=== PATIENT | female | born 1990 | race African-American/Black ===

== ENCOUNTER 2018-03-01 05:00 | Inpatient (IN) | payer OTHER ==
[2018-03-01] MEDS ORDERED: Morphine 4 MG/ML VIAL ONE (05:07)
[2018-03-01] MEDS ORDERED: Ondansetron ODT 8 MG TAB ONE (05:08)
[2018-03-01 05:28] LABS: #Lymphocytes 1.2 thou/uL (1.20-3.40); #Monocytes 0.6 thou/uL (0.11-0.59); #Neutrophils 13.1 thou/uL (1.40-6.50); %Basophils 0.2 % (0.0-1.0); %Eosinophils 0.3 % (0.0-10.0); %Lymphocytes 7.7 % (21.0-51.0); %Monocytes 4.2 % (0.0-10.0); %Neutrophils 87.5 % (42.0-75.0); Hemoglobin 11.9 g/dL (12.0-16.0); Mean Corpuscular HGB CONC 34.3 g/dL (32.0-36.0); Mean Corpuscular Hemoglobin 30.1 pg (27.0-31.0); Mean Corpuscular Volume 87.7 fl (81.0-99.0); Mean Platelet Volume 7.7 fL (7.4-10.4); Platelet Count 262 thou/uL (130-400); RBC Distribution Width 11.1 % (11.5-14.5); Red Blood Cell (RBC) Count 3.94 mill/uL (4.20-5.40); White Blood Cell (WBC) Count 14.9 thou/uL (4.8-10.8)
[2018-03-01 05:30] LABS: INR-International Normal Ratio 1.1; PTT 25.1 SEC (22.9-36.1); Prothrombin Time 14.4 SEC (12.0-14.7)
[2018-03-01] MEDS ORDERED: Fentanyl 100 MCG/2 ML VIAL ONE ×2 (05:33→07:03)
[2018-03-01 05:38] LABS: ALT (SGPT) 13 U/L (8-55); AST (SGOT) 23 U/L (5-34); Albumin 3.7 g/dL (3.5-5.0); Alkaline Phosphatase 52 U/L (40-150); Anion Gap 10 mmol/L (10-20); BUN (Urea Nitrogen) 14 mg/dL (7.0-18.7); Bilirubin, Total 0.2 mg/dL (0.2-1.2); Calc. Creatinine Clearance 0 mL/min (70-130); Calcium 8.5 mg/dL (7.8-10.44); Carbon Dioxide 21 mmol/L (22-29); Chloride 107 mmol/L (98-107); Estimated GFR-MDRD Greater than 90; Globulin 2.8 g/dL (2.4-3.5); Glucose 123 mg/dL (70-105); Lipase 13 U/L (8-78); Potassium 3.8 mmol/L (3.5-5.1); Protein, Total 6.5 g/dL (6.0-8.3); Sodium 134 mmol/L (136-145)
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
[2018-03-01] MEDS ORDERED: Dextrose 5% in Water 1,000 ML IV PRN (07:42)
[2018-03-01] MEDS ORDERED: Dextrose 50% Abboject 50 ML SYRINGE SLOW IVP PRN (07:42)
[2018-03-01] MEDS ORDERED: Fentanyl 100 MCG/2 ML VIAL SLOW IVP PRN (07:42)
[2018-03-01] MEDS ORDERED: Ondansetron HCl/PF 4 MG/2 ML Vial IVP PRN (07:42)
[2018-03-01] MEDS ORDERED: Sodium Chloride 0.9% 1,000 ML IV SCH (07:42)
[2018-03-01 07:58] VITALS: BMI 32.9
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
[2018-03-01] MEDS ORDERED: traMADol HCl 50 MG TAB PO PRN (08:17)
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
[2018-03-01] MEDS: traMADol HCl 50 MG TAB PO PRN ×3 (08:51→21:14)
[2018-03-01] MEDS: Acetaminophen 500 MG TAB PO SCH ×4 (08:51→21:13)
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
[2018-03-01] MEDS ORDERED: ISOVUE-370 76%-LOCM 1 ML ONE (13:58)
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
--- NOTE | 2018-03-01 17:51 | ULT ---
OB ULTRASOUND 03/01/18 HISTORY: Positive . Evaluate gestational age. FINDINGS: There is a fluid collection within the endometrial canal which does contain a pole. [place]-rump length measures 5.25 cm consistent with gestational age by ultrasound of 11 weeks and 6 days. Gestati onal age by last menstrual period is 11 weeks and 3 days. Doppler evaluation does demonstrate heart tones with a heart rate of 158 beats per minute . There is a normal amount of amniotic fluid. Placenta is located anteriorly. The ovaries are not visualized on this examination. No adnexal mass is seen. There is a trace amount of free fluid in the cul-de-sac. IMPRESSION: 1. Single intrauterine gestation with heart tones documented. Gestational age by measureme nt of the crown-rump length is 11 weeks and 6 days. 2. Nonvisualization of bilateral ovaries. 3. Trace amount of free fluid in the cul-de-sac, probably physiologic in origin. POS: [facility]
[2018-03-01] MEDS: Cyclobenzaprine 10 MG TAB PO PRN (21:13)
[2018-03-01] MEDS: Gabapentin 100 MG CAP PO SCH (21:13)
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
[2018-03-02] MEDS: traMADol HCl 50 MG TAB PO PRN ×2 (04:06→14:43)
[2018-03-02] MEDS: Cyclobenzaprine 10 MG TAB PO PRN ×2 (04:06→17:02)
[2018-03-02] MEDS: Acetaminophen 500 MG TAB PO SCH ×4 (04:06→20:32)
[2018-03-02 06:00] LABS: Anion Gap 12 mmol/L (10-20); BUN (Urea Nitrogen) 7 mg/dL (7.0-18.7); Calc. Creatinine Clearance 229 mL/min (70-130); Calcium 8.3 mg/dL (7.8-10.44); Carbon Dioxide 19 mmol/L (22-29); Chloride 106 mmol/L (98-107); Estimated GFR-MDRD Greater than 90; Glucose 89 mg/dL (70-105); Potassium 3.9 mmol/L (3.5-5.1); Sodium 133 mmol/L (136-145)
[2018-03-02 06:07] LABS: #Eosinphils 0.1 thou/uL (0.0-0.7); #Lymphocytes 1.1 thou/uL (1.20-3.40); #Monocytes 0.5 thou/uL (0.11-0.59); #Neutrophils 6.5 thou/uL (1.40-6.50); %Basophils 0.4 % (0.0-1.0); %Eosinophils 0.8 % (0.0-10.0); %Lymphocytes 13.1 % (21.0-51.0); %Monocytes 6.6 % (0.0-10.0); %Neutrophils 79.2 % (42.0-75.0); Hemoglobin 11.4 g/dL (12.0-16.0); Mean Corpuscular HGB CONC 32.7 g/dL (32.0-36.0); Mean Corpuscular Volume 91.8 fl (81.0-99.0); Platelet Count 182 thou/uL (130-400); RBC Distribution Width 11.2 % (11.5-14.5); Red Blood Cell (RBC) Count 3.81 mill/uL (4.20-5.40); White Blood Cell (WBC) Count 8.2 thou/uL (4.8-10.8)
--- NOTE | 2018-03-02 08:07 | RAD ---
SINGLE VIEW CHEST: Date: 03/02/18 COMPARISON: 03/01/18. HISTORY: Rib fracture and hemothorax. FINDINGS: Single view of the chest shows an enlarged cardiomediastinal silhouette. There is a veil-like opacity in the left thorax which likely represents a hemothorax. Adjacent atelectasis may also be present. T he rib fractures seen on CT cannot be definitely appreciated. No right-sided infiltrates are seen. IMPRESSION: Small left pleural effusion versus hemothorax. POS: [facility]
[2018-03-02] MEDS ORDERED: CEFAZOLIN/Water 2 GM/20 ML SYRINGE SLOW IVP SCH (09:00)
[2018-03-02] MEDS ORDERED: Lidocaine 1% (PF) 30 ML VIAL SC SCH (09:00)
[2018-03-02] MEDS: Gabapentin 100 MG CAP PO SCH ×2 (09:35→20:32)
[2018-03-02] MEDS: Prenatal Vitamin 1 TAB PO SCH (09:35)
[2018-03-02] MEDS ORDERED: Morphine 4 MG/ML VIAL SLOW IVP SCH ×2 (11:30→12:30)
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
[2018-03-02] MEDS: HYDROcodone/Acetaminophen 10/325 mg Tablet PO PRN (20:32)
[2018-03-03] MEDS: Acetaminophen 500 MG TAB PO SCH ×2 (02:42→09:04)
[2018-03-03] MEDS: Cyclobenzaprine 10 MG TAB PO PRN (02:43)
[2018-03-03] MEDS: HYDROcodone/Acetaminophen 10/325 mg Tablet PO PRN (06:00)
--- NOTE | 2018-03-03 07:59 | PDOC.EVN ---
Event Note - Event Note Event Note: OBGYN chart check: Patient s/p thoracotomy tube placement yesterday by Dr Ribeiro. Vitals reviewed...normotensive, afebrile. No immediate ObGyn needs at this time.
[2018-03-03] MEDS: Gabapentin 100 MG CAP PO SCH ×3 (09:04→19:37)
[2018-03-03] MEDS: Prenatal Vitamin 1 TAB PO SCH (09:04)
--- NOTE | 2018-03-03 09:05 | RAD ---
CHEST 1 VIEW: Date: 03/03/18 COMPARISON: 03/02/18. HISTORY: Chest tube placement. Pleural effusion. FINDINGS: Interval placement of left-sided chest tube with distal tip projecting over the left lung apex. No de finite pneumothorax. Improved aeration left lung. The previously noted left-sided effusion is less ev ident. There do appear to be parenchymal changes in the left lung base. Overall, lung volumes are dim inished due to poor inspiratory effort. IMPRESSION: Left-sided chest tube as above. POS: [facility]
[2018-03-03] MEDS ORDERED: HYDROcodone/Acetaminophen 10/325 mg Tablet PO PRN ×2 (11:18→12:39)
[2018-03-03] MEDS ORDERED: traMADol HCl 50 MG TAB PO SCH ×2 (12:00→12:45)
[2018-03-03] MEDS ORDERED: Sodium Chloride 0.9% 1,000 ML IV SCH (12:45)
[2018-03-03] MEDS ORDERED: HYDROcodone/Acetaminophen 10/325 mg Tablet PO SCH (13:00)
[2018-03-03] MEDS: Acetaminophen 325 MG TAB PO SCH ×4 (13:05→23:40)
[2018-03-03] MEDS: Ibuprofen 800 MG TAB PO SCH ×2 (14:05→21:52)
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
[2018-03-03] MEDS: traMADol HCl 50 MG TAB PO SCH ×2 (17:53→23:40)
[2018-03-03] MEDS: Docusate 100 MG CAP PO SCH (19:37)
[2018-03-04 05:51] LABS: #Eosinphils 0.1 thou/uL (0.0-0.7); #Lymphocytes 1.3 thou/uL (1.20-3.40); #Monocytes 0.4 thou/uL (0.11-0.59); #Neutrophils 5.5 thou/uL (1.40-6.50); %Basophils 0.2 % (0.0-1.0); %Eosinophils 1.1 % (0.0-10.0); %Monocytes 5.8 % (0.0-10.0); %Neutrophils 74.9 % (42.0-75.0); Hemoglobin 11.1 g/dL (12.0-16.0); Mean Corpuscular HGB CONC 33.6 g/dL (32.0-36.0); Mean Corpuscular Hemoglobin 30.3 pg (27.0-31.0); Mean Corpuscular Volume 90.3 fl (81.0-99.0); Mean Platelet Volume 7.7 fL (7.4-10.4); Platelet Count 213 thou/uL (130-400); RBC Distribution Width 11.3 % (11.5-14.5); Red Blood Cell (RBC) Count 3.66 mill/uL (4.20-5.40); White Blood Cell (WBC) Count 7.4 thou/uL (4.8-10.8)
[2018-03-04] MEDS: Acetaminophen 325 MG TAB PO SCH ×3 (06:02→17:46)
[2018-03-04] MEDS: traMADol HCl 50 MG TAB PO SCH ×3 (06:03→17:46)
[2018-03-04] MEDS: Ibuprofen 800 MG TAB PO SCH ×3 (06:03→22:02)
[2018-03-04 06:24] LABS: Anion Gap 11 mmol/L (10-20); BUN (Urea Nitrogen) 8 mg/dL (7.0-18.7); Calc. Creatinine Clearance 238 mL/min (70-130); Calcium 8.6 mg/dL (7.8-10.44); Carbon Dioxide 23 mmol/L (22-29); Chloride 105 mmol/L (98-107); Estimated GFR-MDRD Greater than 90; Glucose 90 mg/dL (70-105); Magnesium 1.6 mg/dL (1.6-2.6); Phosphorus 4.1 mg/dL (2.3-4.7); Potassium 3.5 mmol/L (3.5-5.1); Sodium 135 mmol/L (136-145)
[2018-03-04] MEDS ORDERED: traMADol HCl 50 MG TAB PO SCH ×2 (07:22→07:30)
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
[2018-03-04] MEDS: Prenatal Vitamin 1 TAB PO SCH (08:46)
[2018-03-04] MEDS: Docusate 100 MG CAP PO SCH (08:46)
[2018-03-04] MEDS: Gabapentin 100 MG CAP PO SCH ×3 (08:46→22:02)
[2018-03-04] MEDS: Polyethylene Glycol 3350 17 GM Packet PO SCH (08:48)
[2018-03-04] MEDS: Metamucil PACK PO SCH (08:48)
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
[2018-03-04] MEDS: Senokot S 8.6-50 MG TAB PO SCH (22:02)
[2018-03-05] MEDS: traMADol HCl 50 MG TAB PO SCH ×4 (00:49→17:14)
[2018-03-05] MEDS: Acetaminophen 325 MG TAB PO SCH ×4 (00:49→17:13)
[2018-03-05] MEDS: Ibuprofen 800 MG TAB PO SCH ×3 (05:42→21:12)
--- NOTE | 2018-03-05 08:44 | RAD ---
ONE VIEW CHEST: COMPARISON: 03/04/18. HISTORY: Chest tube. Hemothorax. FINDINGS: Stable configuration of the cardiac silhouette. Lung volumes continue to be diminished. Stable left -sided chest tube. Minimal pleural and parenchymal changes in the left lung base. No definite pneum othorax. IMPRESSION: No significant interval change. POS: [facility]
[2018-03-05] MEDS: Gabapentin 100 MG CAP PO SCH ×3 (08:57→21:12)
[2018-03-05] MEDS: Prenatal Vitamin 1 TAB PO SCH (08:57)
[2018-03-05] MEDS: Senokot S 8.6-50 MG TAB PO SCH ×2 (08:57→21:11)
[2018-03-05] MEDS: Metamucil PACK PO SCH (08:58)
[2018-03-05] MEDS: Polyethylene Glycol 3350 17 GM Packet PO SCH (08:58)
[2018-03-05] MEDS ORDERED: Magnesium Citrate 300 ML BOT PO SCH (12:30)
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
[2018-03-06] MEDS: traMADol HCl 50 MG TAB PO SCH ×5 (00:24→23:52)
[2018-03-06] MEDS: Acetaminophen 325 MG TAB PO SCH ×5 (00:24→23:52)
[2018-03-06] MEDS: Cyclobenzaprine 10 MG TAB PO PRN (04:09)
[2018-03-06] MEDS: Ibuprofen 800 MG TAB PO SCH ×3 (05:26→21:43)
[2018-03-06] MEDS: Senokot S 8.6-50 MG TAB PO SCH ×2 (09:53→21:43)
[2018-03-06] MEDS: Gabapentin 100 MG CAP PO SCH ×3 (09:53→21:43)
[2018-03-06] MEDS: Prenatal Vitamin 1 TAB PO SCH (09:53)
[2018-03-06] MEDS: Metamucil PACK PO SCH (09:54)
[2018-03-06] MEDS: Polyethylene Glycol 3350 17 GM Packet PO SCH (09:54)
--- NOTE | 2018-03-06 12:16 | RAD ---
PORTABLE AP CHEST XRAY: DATE: 03/06/18. HISTORY: Hemothorax. COMPARISON: 03/05/18. FINDINGS: Left-sided thoracostomy tube remains in place and unchanged in position. No pneumothorax is seen. T here is persistent atelectasis of the left lung base. There is mild elevation of the right hemidiaph ragm with minimal atelectasis right lung base. Cardiac silhouette is stable in size. The pulmonary vasculature is within normal limits. There has been no interval change from the prior exam. IMPRESSION: Stable chest. POS: [facility]
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
[2018-03-07] MEDS: Acetaminophen 325 MG TAB PO SCH ×2 (06:34→11:41)
[2018-03-07] MEDS: Ibuprofen 800 MG TAB PO SCH ×2 (06:34→14:53)
[2018-03-07] MEDS: traMADol HCl 50 MG TAB PO SCH ×2 (06:34→11:41)
[2018-03-07] MEDS ORDERED: Bisacodyl 10 MG SUPP PR SCH (09:00)
[2018-03-07] MEDS ORDERED: Senokot 8.6 MG TAB PO SCH (09:00)
[2018-03-07] MEDS ORDERED: Polyethylene Glycol 3350 17 GM Packet PO SCH (09:00)
[2018-03-07] MEDS ORDERED: Docusate 100 MG CAP PO SCH (09:00)
--- NOTE | 2018-03-07 09:13 | RAD ---
PORTABLE CHEST: Date: 03/07/18 HISTORY: Hemothorax. Follow-up chest tube removal. COMPARISON: 03/06/18. FINDINGS/IMPRESSION: Left chest tube has been removed. No evidence of significant pneumothorax. Mild stranding in the left lung base. No significant effusion identified. The lungs appear clear. POS: [facility]
[2018-03-07] MEDS: Metamucil PACK PO SCH (09:37)
[2018-03-07] MEDS: Prenatal Vitamin 1 TAB PO SCH (09:37)
[2018-03-07] MEDS: Gabapentin 100 MG CAP PO SCH ×2 (09:37→14:53)
[2018-03-07] MEDS: Senokot S 8.6-50 MG TAB PO SCH (09:38)
[2018-03-07] MEDS: Polyethylene Glycol 3350 17 GM Packet PO SCH (09:40)
[2018-03-07] MEDS ORDERED: Milk Of Magnesia 30 ML UDCUP PO SCH (12:00)
[2018-03-07 12:06] VITALS: BP 110/75; TEMP 97.7
== END 2018-03-07 17:24 | disposition home or self-care (01) | DRG 781 ==
LOC: ERS 05:00 → IMCU/EMU 06:25 → SURG A 13:46
PROVIDERS: ADMIT Specialist; ATTEND Specialist
PROC: 0W9B00Z Drainage of Left Pleural Cavity with Drainage Device, Open Approach (ICD-10-PCS; principal; 2018-03-02)
DX: O9A.211 Injury, poisoning and certain other consequences of external causes complicating pregnancy, first trimester (principal); S36.031A Moderate laceration of spleen, initial encounter; S27.2XXA Traumatic hemopneumothorax, initial encounter; S22.42XA Multiple fractures of ribs, left side, initial encounter for closed fracture; S27.322A Contusion of lung, bilateral, initial encounter; O99.351 Diseases of the nervous system complicating pregnancy, first trimester; G89.11 Acute pain due to trauma; O99.281 Endocrine, nutritional and metabolic diseases complicating pregnancy, first trimester; E04.1 Nontoxic single thyroid nodule; R33.9 Retention of urine, unspecified; Z3A.11 11 weeks gestation of pregnancy; V89.2XXA Person injured in unspecified motor-vehicle accident, traffic, initial encounter
CPT/HCPCS: 36415; 70450; 71045; 71260; 72125; 74177; 76856; 80048; 80053; 83690; 83735; 84100; 84702; 85025; 85610; 85730; 86850; 86900; 86901; 93005; 96374; 96375; 96376; 99292; G0390; G8978-GP-CI; G8979-GP-CI; G8980-GP-CI; G8987-GO-CJ; G8988-GO-CI; J2001; J2270; J3010

== ENCOUNTER 2018-03-15 12:01 | Outpatient (CLI) | payer OTHER ==
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
== END 2018-03-15 12:02 | disposition home or self-care (01) ==
LOC: RAD 12:01
PROVIDERS: ATTEND Physician Assistant
DX: S27.1XXA Traumatic hemothorax, initial encounter (principal); S36.039A Unspecified laceration of spleen, initial encounter
CPT/HCPCS: 71046

== ENCOUNTER 2018-03-24 10:18 | Outpatient (CLI) | payer OTHER | END 2018-03-24 10:19 | disposition home or self-care (01) | LOC: BICULT 10:18 | PROVIDERS: ATTEND Family Medicine | DX: Z34.92 Encounter for supervision of normal pregnancy, unspecified, second trimester (principal); N91.2 Amenorrhea, unspecified; Z3A.15 15 weeks gestation of pregnancy | CPT/HCPCS: 76805 ==

== ENCOUNTER 2018-05-05 13:12 | Outpatient (CLI) | payer OTHER ==
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
== END 2018-05-05 13:13 | disposition home or self-care (01) ==
LOC: BICULT 13:12
PROVIDERS: ATTEND Family Medicine
DX: Z34.92 Encounter for supervision of normal pregnancy, unspecified, second trimester (principal); S22.42XD Multiple fractures of ribs, left side, subsequent encounter for fracture with routine healing; Z3A.21 21 weeks gestation of pregnancy
CPT/HCPCS: 71046; 76805

== ENCOUNTER 2018-08-03 15:21 | Outpatient (CLI) | payer OTHER ==
--- NOTE | 2018-08-03 17:58 | ULT ---
ULTRASOUND LIMITED: 08/03/18 HISTORY: 32 week gestation. Follow up pelvic pain although no prior ultrasound imaging is available for compar kaylen. A single viable intrauterine fetus is noted in cephalic presentation. The placenta is posterior witho ut evidence of placenta previa. heart rate is 153 beats per minute. Amniotic fluid is 15.2 cm. anatomy was not specifically addressed at the time of this study. BIOMETRY: BPD 8.7 cm - - 35 weeks, 0 days Head circumference 32.1 cm - - 36 weeks, 2 days Abdominal circumference 30.3 cm - - 34 weeks, 2 days Femur length 6.7 cm - - 34 weeks, 2 days IMPRESSION: Single viable intrauterine fetus at 35 weeks, 0 days. EDC 09/07/18. Estimated weight 2455 grams at the 64th percentile. Abdominal circumference is approximately two weeks less than head circumfere nce but still within statistical variability. POS: [facility]
== END 2018-08-03 15:22 | disposition home or self-care (01) ==
LOC: SCSULT 15:21
PROVIDERS: ATTEND Family Medicine
DX: Z34.93 Encounter for supervision of normal pregnancy, unspecified, third trimester (principal); Z3A.32 32 weeks gestation of pregnancy
CPT/HCPCS: 76805

== ENCOUNTER 2018-09-11 21:54 | Inpatient (IN) | payer OTHER ==
[2018-09-11] MEDS ORDERED: NS / Oxytocin 40 units/1000ml 1,000 ML IV PRN (21:55)
[2018-09-11] MEDS ORDERED: Lidocaine 1% (PF) 30 ML VIAL SC PRN (21:55)
[2018-09-11] MEDS ORDERED: Acetaminophen 500 MG TAB PO PRN (21:55)
[2018-09-11] MEDS ORDERED: Ondansetron PF 4 MG/2 ML Vial IVP PRN (21:55)
[2018-09-11] MEDS ORDERED: HYDROcodone/Acetaminophen 5/325 mg Tablet PO PRN (21:55)
[2018-09-11] MEDS ORDERED: Ibuprofen 800 MG TAB PO PRN (21:55)
[2018-09-11] MEDS ORDERED: Docusate 100 MG CAP PO PRN (21:55)
[2018-09-11] MEDS ORDERED: Misoprostol 200 MCG TAB PR PRN (21:55)
[2018-09-11] MEDS ORDERED: Zolpidem Tartrate 5 MG TAB PO PRN (21:55)
[2018-09-11] MEDS ORDERED: Promethazine HCl 25 MG/ML VIAL IM PRN (21:55)
[2018-09-11 22:32] VITALS: BMI 32.7
[2018-09-11] MEDS: Lactated Ringer's 1,000 ML IV SCH (22:45)
[2018-09-11] MEDS: Misoprostol 100 MCG TAB VAG SCH (23:00)
[2018-09-11] MEDS: NS w/ Oxytocin 10 units 500 ML IV SCH (23:02)
[2018-09-11 23:05] LABS: Hemoglobin 9.9 g/dL (12.0-16.0); Mean Corpuscular HGB CONC 32.9 g/dL (32.0-36.0); Mean Corpuscular Hemoglobin 28.5 pg (27.0-31.0); Mean Corpuscular Volume 86.7 fL (78.0-98.0); Mean Platelet Volume 7.9 fL (7.4-10.4); Platelet Count 326 thou/uL (130-400); RBC Distribution Width 11.7 % (11.5-14.5); Red Blood Cell (RBC) Count 3.47 mill/uL (4.20-5.40); White Blood Cell (WBC) Count 9.9 thou/uL (4.8-10.8)
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
[2018-09-11 23:45] LABS: Syphilis Antibody Nonreactive (Nonreactive); Syphilis Antibody Index 0.04 S/CO (<1.00 Non-Reactive)
[2018-09-11 23:58] LABS: HBSAg Index 0.16 S/CO (0-0.99); Hep B Surf Ag Non-Reactive S/CO (NonReactive)
[2018-09-12] MEDS: Lactated Ringer's 1,000 ML IV SCH ×2 (05:05→16:57)
[2018-09-12] MEDS: Misoprostol 100 MCG TAB VAG SCH ×5 (06:30→22:00)
[2018-09-12] MEDS: Butorphanol Tartrate 1 MG/ML VIAL SLOW IVP PRN ×3 (09:12→13:18)
[2018-09-12] MEDS: NS w/ Oxytocin 10 units 500 ML IV SCH (10:04)
[2018-09-12] MEDS ORDERED: ePHEDrine/0.9% NaCl/PF SYRINGE 50 mg/10 ml ONE (14:25)
[2018-09-12] MEDS ORDERED: Fentanyl 4 mcg/Bup 0.1% Cadd 100 ML ONE (14:26)
[2018-09-12] MEDS ORDERED: diphenhydrAMINE 50 MG/ML VIAL IVP PRN (15:17)
[2018-09-12] MEDS ORDERED: Ondansetron PF 4 MG/2 ML Vial IVP PRN (15:17)
[2018-09-12] MEDS ORDERED: Acetaminophen 325 MG TAB PO PRN (15:17)
[2018-09-12] MEDS ORDERED: Naloxone HCl 0.4 mg/ml Vial IVP PRN ×2 (15:17)
[2018-09-12] MEDS ORDERED: ePHEDrine/0.9% NaCl/PF SYRINGE 50 mg/10 ml SLOW IVP PRN (15:17)
[2018-09-12] MEDS ORDERED: Eucerin (Mineral Oil/Petrolatum,White) 30 gm Jar TOP PRN (15:17)
[2018-09-12] MEDS ORDERED: Promethazine HCl 25 MG/ML VIAL IM PRN (15:17)
[2018-09-12] MEDS ORDERED: Lactated Ringer's 500 ML IV PRN (15:17)
[2018-09-12] MEDS ORDERED: Communication Order-Pharmacy FS SCH (15:30)
[2018-09-12] MEDS ORDERED: Fentanyl 4 mcg/Bupivacaine 0.1% Cassette 100 ML EPIDURAL SCH (15:30)
[2018-09-12] MEDS ORDERED: Lanolin Ointment 7 GM TUBE TOP PRN (21:21)
[2018-09-12] MEDS ORDERED: Milk Of Magnesia 30 ML UDCUP PO PRN (21:21)
[2018-09-12] MEDS ORDERED: Bisacodyl 10 MG SUPP PR PRN (21:21)
[2018-09-12] MEDS ORDERED: Adacel (T-DAP) 0.5 ML VIAL IM ONE (21:21)
[2018-09-12] MEDS ORDERED: NS / Oxytocin 40 units/1000ml 1,000 ML IV SCH (21:21)
--- NOTE | 2018-09-13 00:26 | OP ---
DATE OF SERVICE: 09/12/2018 PREOPERATIVE DIAGNOSIS: Term . POSTOPERATIVE DIAGNOSIS: Term . PROCEDURE: Spontaneous vaginal delivery with repair of secondary midline episiotomy. ANESTHESIA: Epidural. PROCEDURE IN DETAIL: This 27-year-old Latin-[place] female G2, P1 taken to delivery room and comple te and pushing. Patient prepped and draped sterilely. Delivered a baby girl, Apgars 8 at one minute , 9 at five minutes. Baby did breathe and cry vigorously upon delivery. The cord was clamped and cu t. Three-vessel cord noted. Delivered placenta, 3-vessel intact. Repaired a small second-degree mi dline episiotomy with 3-0 chromic. Mother and baby did well. Estimated blood loss was less than 350 mL.
[2018-09-13 06:23] LABS: Hemoglobin 8.8 g/dL (12.0-16.0); Mean Corpuscular Hemoglobin 28.4 pg (27.0-31.0); Mean Corpuscular Volume 88.7 fL (78.0-98.0); Mean Platelet Volume 7.9 fL (7.4-10.4); Platelet Count 248 thou/uL (130-400); RBC Distribution Width 11.7 % (11.5-14.5); Red Blood Cell (RBC) Count 3.08 mill/uL (4.20-5.40); White Blood Cell (WBC) Count 12.7 thou/uL (4.8-10.8)
[2018-09-13] MEDS ORDERED: Ibuprofen 800 MG TAB PO PRN (09:36)
[2018-09-13] MEDS ORDERED: HYDROcodone/Acetaminophen 5/325 mg Tablet PO PRN (09:36)
[2018-09-13] MEDS ORDERED: Calcium Carbonate 500 MG ChewTAB PO PRN (09:37)
[2018-09-13] MEDS: HYDROcodone/Acetaminophen 5/325 mg Tablet PO PRN ×2 (10:40→19:44)
[2018-09-13] MEDS: Docusate Calcium (SURFAK) 240 MG CAP PO SCH ×2 (10:43→19:45)
[2018-09-13] MEDS: Ferrous Sulfate 325 MG TAB PO SCH ×2 (10:44→19:45)
[2018-09-13] MEDS ORDERED: Bupivacaine/Epinephrine 0.25% 30 ML VIAL ONE (18:00)
[2018-09-13 21:33] VITALS: BP 113/54; TEMP 98.3
== END 2018-09-13 20:50 | disposition home or self-care (01) | DRG 807 ==
LOC: L&D 21:54 → 3SE 09-12 22:02
PROVIDERS: ADMIT Family Medicine; ATTEND Family Medicine
PROC: 3E0P7VZ Introduction of Hormone into Female Reproductive, Via Natural or Artificial Opening (ICD-10-PCS; 2018-09-11)
PROC: 10E0XZZ Delivery of Products of Conception, External Approach (ICD-10-PCS; principal; 2018-09-12)
PROC: 0W8NXZZ Division of Female Perineum, External Approach (ICD-10-PCS; 2018-09-12)
PROC: 3E033VJ Introduction of Other Hormone into Peripheral Vein, Percutaneous Approach (ICD-10-PCS; 2018-09-12)
PROC: 10907ZC Drainage of Amniotic Fluid, Therapeutic from Products of Conception, Via Natural or Artificial Opening (ICD-10-PCS; 2018-09-12)
PROC: 10H07YZ Insertion of Other Device into Products of Conception, Via Natural or Artificial Opening (ICD-10-PCS; 2018-09-12)
DX: O80 Encounter for full-term uncomplicated delivery (principal); Z3A.39 39 weeks gestation of pregnancy; Z37.0 Single live birth
CPT/HCPCS: 36415; 51702; 85027; 86780; 86850; 86900; 86901; 87340; J0595; J2001; J2405